=== PATIENT | female | born 1995 | race Hispanic/Latino ===

== ENCOUNTER 2018-04-13 11:48 | Emergency (ER) | payer MEDICAID, SELFPAY ==
[~2018-04-13 11:48] MED LIST: ISOVUE-370 76%-LOCM 1 ML ONE
[2018-04-13 12:26] LABS: #Eosinphils 0.3 thou/uL (0.0-0.7); #Lymphocytes 1.9 thou/uL (1.20-3.40); #Monocytes 0.5 thou/uL (0.11-0.59); #Neutrophils 3.5 thou/uL (1.40-6.50); %Basophils 0.5 % (0.0-1.0); %Eosinophils 4.5 % (0.0-10.0); %Lymphocytes 30.7 % (21.0-51.0); %Monocytes 8.3 % (0.0-10.0); %Neutrophils 56.1 % (42.0-75.0); Hemoglobin 13.4 g/dL (12.0-16.0); Mean Corpuscular HGB CONC 34.3 g/dL (32.0-36.0); Mean Corpuscular Hemoglobin 29.7 pg (27.0-31.0); Mean Corpuscular Volume 86.7 fL (78.0-98.0); Mean Platelet Volume 8.3 fL (7.4-10.4); Platelet Count 243 thou/uL (130-400); RBC Distribution Width 11.1 % (11.5-14.5); Red Blood Cell (RBC) Count 4.49 mill/uL (4.20-5.40); White Blood Cell (WBC) Count 6.2 thou/uL (4.8-10.8)
[2018-04-13 12:52] LABS: CKMB 0.7 ng/mL (0-6.6); Troponin I Less than 0.010 ng/mL (< 0.028)
[2018-04-13 12:53] LABS: ALT (SGPT) 13 U/L (8-55); AST (SGOT) 12 U/L (5-34); Albumin 4.4 g/dL (3.5-5.0); Alkaline Phosphatase 69 U/L (40-150); Anion Gap 12 mmol/L (10-20); BUN (Urea Nitrogen) 16 mg/dL (7.0-18.7); Calc. Creatinine Clearance 0 mL/min (70-130); Calcium 9.5 mg/dL (7.8-10.44); Carbon Dioxide 25 mmol/L (22-29); Chloride 105 mmol/L (98-107); Estimated GFR-MDRD Greater than 90; Globulin 3.1 g/dL (2.4-3.5); Glucose 101 mg/dL (70-105); Potassium 3.8 mmol/L (3.5-5.1); Protein, Total 7.5 g/dL (6.0-8.3); Sodium 138 mmol/L (136-145)
[2018-04-13 13:07] LABS: Free T4 (Free Thyroxine) 1.25 ng/dL (0.70-1.48); Thyroid Stimulating Hormone 0.6346 uIU/mL (0.35-4.94)
--- NOTE | 2018-04-13 14:17 | RAD ---
PORTABLE UPRIGHT FRONTAL CHEST RADIOGRAPH: 04/13/2018 HISTORY: Chest pain. COMPARISON: None. FINDINGS: No pneumothorax, pleural fluid, focal consolidation, or alveolar edema. Heart and mediastinal contou rs appear grossly unremarkable. IMPRESSION: No acute findings. POS: [facility]
[2018-04-13 14:22] LABS: Bilirubin Negative (Negative); Blood, Urine Negative (Negative); Clarity CLOUDY (Clear); Glucose, Urine (Dipstick) Negative (Negative); Leukocyte Moderate (Negative); Nitrite Negative (Negative); Protein, Urine (Dipstick) Negative (Neg-Trace); Specific Gravity, Urine 1.007 (1.002-1.036); Urobilinogen 0.2 mg/dL (0.2-1.0)
[2018-04-13 14:24] LABS: Bacteria/HPF None Seen HPF (None Seen); Hyaline Casts/LPF 0-3 HYALINE CAST LPF (0-3 Hyaline); Squamous Epithelial 0-3 HPF (0-3)
[2018-04-13 14:27] LABS: Pregnancy Test - Urine (BHCG) Negative (Negative); Pregu Control Background? CLEAR/WHITE (CLR/WHITE); Pregu Control Bar Appear? YES (CONTROL BAR); Specific Gravity 1.007 (1.002-1.036)
--- NOTE | 2018-04-13 15:53 | CT ---
CT PULMONARY ANGIOGRAM WITH IV CONTRAST AND 3D POSTPROCESSING: HISTORY: Chest pain. FINDINGS: There is good contrast opacification of the pulmonary arterial vasculature without filling defect to suggest pulmonary embolism. The thoracic aorta is well opacified without aneurysm or dissection. No pleural or pericardial effusions are identified. The lungs are clear. No pneumothoraces, lobar con solidation, or lung masses are identified. Upper abdominal tomograms demonstrate a gallstone and a 2 cm cyst in the pancreas with the junction o f the neck and body. IMPRESSION: 1. No CT evidence of pulmonary embolism. 2. Cholelithiasis. 3. A 2 cm pancreatic cystic mass. Further evaluation with endoscopic ultrasound is recommended. CODE T POS: [facility]
[2018-04-13] MEDS ORDERED: Ibuprofen 200 MG TAB ONE (16:38)
--- NOTE | 2018-04-18 11:39 | EKG ---
Test Reason : Blood Pressure : / mmHG Vent. Rate : 109 BPM Atrial Rate : 109 BPM P-R Int : 122 ms QRS Dur : 094 ms QT Int : 338 ms P-R-T Axes : 041 047 042 degrees QTc Int : 455 ms Sinus tachycardia Otherwise normal ECG No ST elevation/[place] Confirmed by JORGE ALBERTO REYES DO ([id number]), senior technical editor LISE OLSON ([id number] on 04/18/2018 11:39:10 AM Referred By: Confirmed By:JORGE ALBERTO REYES DO
== END 2018-04-13 17:00 | disposition home or self-care (01) ==
LOC: ERS 11:48 → EEVIPCON 11:48 → ERS 17:00
DX: R07.89 Other chest pain (principal); N39.0 Urinary tract infection, site not specified; F32.9 Major depressive disorder, single episode, unspecified; F41.9 Anxiety disorder, unspecified; R00.0 Tachycardia, unspecified
CPT/HCPCS: 36415; 71045; 71275; 80053; 81003; 81015; 81025; 82553; 84439; 84443; 84484; 85025; 85379; 93005; 96360; 96361